=== PATIENT | female | born 1945 | race Caucasian/White ===

== ENCOUNTER 2017-06-10 13:00 | Day surgery (SDC) | payer MEDICARE ==
[~2017-06-10] VITALS: Ht 160 cm; Wt 81.3 kg
[~2017-06-10 13:00] MED LIST: Amlodipine Besyl5 MG PO; Aspir 8181 MG PO; ESTROGEN-METHY1 EACH PO; FISH OIL 1,2001 EAC1 PO; HORIZANT300 MG PO; HYDR-86 PO; Mirapex1 MG PO; Mobic15 MG PO; Multiple Vitam1 EAC1 PO; OMEP20ER PO; TIZANIDINE HCL2 MG PO; Venlafaxine HCl75 MG PO
== END 2017-06-10 16:46 | disposition home or self-care (01) ==
LOC: ORSCSDS 13:00
PROVIDERS: Podiatrist Foot & Ankle Surgery
PROC: 0LQN0ZZ Repair Right Lower Leg Tendon, Open Approach (ICD-10-PCS; principal; 2017-06-10 14:15)
PROC: 0LSN0ZZ Reposition Right Lower Leg Tendon, Open Approach (ICD-10-PCS; principal; 2017-06-10 14:15)
DX: M76.61 Achilles tendinitis, right leg (principal); E78.00 Pure hypercholesterolemia, unspecified; I10 Essential (primary) hypertension; G47.33 Obstructive sleep apnea (adult) (pediatric); F32.9 Major depressive disorder, single episode, unspecified; G25.81 Restless legs syndrome; Z79.899 Other long term (current) drug therapy
CPT/HCPCS: J0171; J0690; J2250; J3010

== ENCOUNTER → 2017-09-14 | Outpatient (CLI) | payer MEDICARE | END | disposition home or self-care (01) | LOC: EDSTATUS 08:56 → LAB SHORT 10:29 → PLD 10:29 | DX: D48.5 Neoplasm of uncertain behavior of skin (principal) | CPT/HCPCS: 88305 ==

== ENCOUNTER → 2018-06-28 | Outpatient (CLI) | payer MEDICARE | END | disposition home or self-care (01) | LOC: LAB SHORT 18:40 → LAB 18:40 | PROVIDERS: Nurse Practitioner Women's Health | DX: Z12.72 Encounter for screening for malignant neoplasm of vagina (principal) | CPT/HCPCS: 87624; G0123 ==

== ENCOUNTER 2018-07-14 06:52 | Day surgery (SDC) | payer MEDICARE ==
[~2018-07-14] VITALS: Ht 157.5 cm; Wt 71.9 kg
--- NOTE | 2018-07-14 07:48 | NUR ---
07/14/18 0748 Jose F Villagomez 1ST IV ATTEMPT IN LW UNSUCCESSFUL, PATIENT JERKED AWAY, [email or web address] 2ND IV ATTEMPT IN RH SUCCESSFUL, [id number]
--- NOTE | 2018-07-14 09:11 | NUR ---
07/14/18 0911 Trevin Laird FOR 0815. DR SARAVIA AND DR OHARA INFORMED OF PT'S POTASSIUM LEVEL OF 3.4 ON 07/05/18. NO NEW ORDERS GIVEN. OKAY TO PROCEDE WITH OPERATION.
--- NOTE | 2018-07-14 09:17 | NUR ---
07/14/18 0917 Anna Marie Correa PATIENT WAKES UP AND IS SHAKING HER HEAD AND MOVING AROUND VIGOUROUSLY I TALK TO HER AND GET HER TO UNDERSTAND WHERE SHE IS. ASK ABOUT PAIN AND NAUSEA--NO NAUSEA SHE DOES ADMIT TO PAIN 05/28 AND WHEN ASKED IF SHE WANTS MEDICATION FOR PAIN SHE REPLIES "LETS WAIT AND SEE"
== END 2018-07-14 10:18 | disposition home or self-care (01) ==
LOC: ORSCSDS 06:52
PROVIDERS: Podiatrist Foot & Ankle Surgery
PROC: 0LQW0ZZ Repair Left Foot Tendon, Open Approach (ICD-10-PCS; principal; 2018-07-14 08:15)
DX: M65.872 Other synovitis and tenosynovitis, left ankle and foot (principal); S86.312A Strain of muscle(s) and tendon(s) of peroneal muscle group at lower leg level, left leg, initial encounter; I10 Essential (primary) hypertension; K21.9 Gastro-esophageal reflux disease without esophagitis; Z79.899 Other long term (current) drug therapy
CPT/HCPCS: J0690; J1100; J2250; J2405; J2704; J3010; J7120

== ENCOUNTER 2019-02-02 10:48 | Day surgery (SDC) | payer MEDICARE ==
[~2019-02-02] VITALS: Ht 160 cm; Wt 77.4 kg
[~2019-02-02 10:48] MED LIST changes: +Accuneb0.63 MG/3 INH; +Buspirone HCl15 MG PO; +DOCU100 PO; +LOSARTAN POTAS100 MG PO; +Super Calcium600 MG PO; +TESTOSTERONE CREAM VAG; +VENL75ER PO; +Vivelle-Dot1 EAC3 TD
--- NOTE | 2019-02-02 12:37 | NUR ---
02/02/19 1237 Ibeth Davidson (Rosie PT UPDATED ON DELAY. PT RESTING COMFORTABLY WITH SPOUSE AT BEDSIDE, CALL LIGHT WITHIN REACH. PT DENIES NEEDS AT THIS TIME.
--- NOTE | 2019-02-02 15:02 | NUR ---
02/02/19 1502 Marilou Lee SHE STATES THE FENTANYL DID NOT RELIEVE HER PAIN, MED C TOTAL 100 MCG PER ORDER, MED C NORCO 5/325MG 2 PO FOR PAIN
== END 2019-02-02 16:00 | disposition home or self-care (01) ==
LOC: ORSCSDS 10:48
PROVIDERS: Podiatrist Foot & Ankle Surgery
PROC: 0LQW0ZZ Repair Left Foot Tendon, Open Approach (ICD-10-PCS; principal; 2019-02-02 12:15)
DX: S86.392A Other injury of muscle(s) and tendon(s) of peroneal muscle group at lower leg level, left leg, initial encounter (principal); I10 Essential (primary) hypertension; G47.33 Obstructive sleep apnea (adult) (pediatric); Z79.899 Other long term (current) drug therapy
CPT/HCPCS: A9270-GY; J0171; J0690; J2704; J3010; J7120

== ENCOUNTER → 2019-05-21 | Outpatient (CLI) | payer MEDICARE | END | disposition home or self-care (01) | LOC: LAB SHORT 11:17 → PLD 11:17 | DX: L81.4 Other melanin hyperpigmentation (principal) | CPT/HCPCS: 88305 ==

== ENCOUNTER → 2020-06-12 | Outpatient (CLI) | payer MEDICARE | END | disposition home or self-care (01) | LOC: LAB 18:33 → LAB SHORT 18:33 | DX: N39.0 Urinary tract infection, site not specified (principal) | CPT/HCPCS: 87077; 87086; 87186 ==

== ENCOUNTER → 2021-09-04 | Outpatient (CLI) | payer OTHER | END | disposition home or self-care (01) | LOC: LAB SHORT 15:00 → LAB 15:00 | DX: R82.998 Other abnormal findings in urine (principal) | CPT/HCPCS: 87077; 87086; 87186 ==

== ENCOUNTER → 2021-11-17 | Outpatient (CLI) | payer OTHER | END | disposition home or self-care (01) | LOC: LAB 12:33 → LAB SHORT 12:33 | DX: N39.0 Urinary tract infection, site not specified (principal) | CPT/HCPCS: 87077; 87086; 87186 ==

== ENCOUNTER → 2022-02-09 | Outpatient (CLI) | payer OTHER | END | disposition home or self-care (01) | LOC: LAB SHORT 15:14 → LAB 15:14 | DX: R30.0 Dysuria (principal) | CPT/HCPCS: 87077; 87086; 87186 ==

== ENCOUNTER 2023-04-19 12:49 | Emergency (ER) | payer OTHER ==
[~2023-04-19] VITALS: Ht 160 cm; Wt 71.2 kg
[2023-04-19] MEDS ORDERED: NS 1,000 ML IV SCH (14:35)
[2023-04-19] MEDS ORDERED: Ondansetron HCl 2 MG / ML 2ML Vial IV PRN (14:35)
[2023-04-19 15:14] LABS: Source, Urine Straight Cath
[2023-04-19 15:18] LABS: BASOPHILS ABSOLUTE AUTO 0.03 K/mm3 (0.00-0.23); BASOPHILS PERCENT AUTO 0 % (0-2); EOSINOPHILS ABSOLUTE AUTO 0.15 K/mm3 (0.00-0.68); EOSINOPHILS PERCENT AUTO 2 % (0-6); Hematocrit 44.3 % (33.0-51.0); Hemoglobin 14.7 g/dL (11.5-16.0); IMMATURE GRAN ABSOLUTE AUTO 0.03 K/mm3 (0.00-0.10); IMMATURE GRAN PERCENT AUTO 0 % (0-1); LYMPHOCYTES ABSOLUTE AUTO 1.26 K/mm3 (0.84-5.20); LYMPHOCYTES PERCENT AUTO 15 % (21-46); MONOCYTES ABSOLUTE AUTO 0.51 K/mm3 (0.16-1.47); MONOCYTES PERCENT AUTO 6 % (4-13); Mean Corpuscular HGB 31.3 pg (26.0-34.0); Mean Corpuscular HGB Conc 33.2 g/dL (31.5-36.5); Mean Corpuscular Volume 95 fL (80-100); NEUTROPHILS ABSOLUTE AUTO 6.54 K/mm3 (1.96-9.15); NEUTROPHILS PERCENT AUTO 77 % (41-73); Platelet Count 238 K/mm3 (150-400); RDW Standard Deviation 41.3 fL (35.1-46.3); Red Blood Cell Count 4.69 M/mm3 (3.80-5.20); White Blood Cell Count 8.52 K/mm3 (4.00-11.30)
[2023-04-19 15:19] LABS: Appearance, Urine Clear (Clear); Bilirubin, Urine Neg (Neg); Blood, Urine Neg (Neg); Glucose Qualitative, Urine Neg (Neg); Ketones, Urine Neg (Neg); Leukocyte Esterase, Urine Neg (Neg); Nitrite, Urine Neg (Neg); Protein, Urine Neg (Neg); Urobilinogen, Urine NORM (Normal)
[2023-04-19 15:28] LABS: Magnesium, Blood 2.2 mg/dL (1.6-2.4)
[2023-04-19] MEDS ORDERED: DiphenhydrAMINE HCl 50 MG/ML 1ML Vial IV ONE (15:30)
[2023-04-19] MEDS ORDERED: Metoclopramide HCl 5MG / ML 2ML Vial IV ONE (15:30)
[2023-04-19 15:31] LABS: Albumin, Blood 4.2 g/dL (3.4-5.0); Albumin/Globulin Ratio 0.9 (0.8-1.8); Bilirubin, Total 0.4 mg/dL (0.1-1.0); Bun/Creatinine Ratio 30.2 (12.0-20.0); Creatinine, Blood 0.6 mg/dL (0.40-1.00); Globulin, Blood 4.7 g/dL (2.2-4.0); Potassium, Blood 4.4 mmol/L (3.5-5.5); Thyroid Stimulating Hormone 2.07 uIU/mL (0.360-4.800); Total Protein, Blood 8.9 g/dL (6.4-8.2)
[2023-04-19 15:51] LABS: Color, Urine Pale Yellow (P-Yellow)
[2023-04-19 16:06] LABS: U Amphetamine Screen Not Detected; U Barbituate Screen Not Detected; U Benzodiazapine Screen Not Detected; U Buprenorphine Screen Not Detected; U Cannabinoids Screen Not Detected; U Cocaine Screen Not Detected; U Methadone Screen Not Detected; U Methamphetamine Screen Not Detected; U Opiates Screen Not Detected; U Oxycodone Screen Not Detected; U Phencyclidine Screen Not Detected
[2023-04-19 16:11] LABS: Influenza A, PCR NEGATIVE (NEGATIVE); Influenza B, PCR NEGATIVE (NEGATIVE); Resp Syncytial Virus, PCR NEGATIVE (NEGATIVE); SARS-Cov-2 (COVID-19) PCR, MMC NEGATIVE (NEGATIVE)
[2023-04-19] MEDS ORDERED: MECL12.5 PO (16:14)
[2023-04-19] MEDS ORDERED: PROM25 PO (16:14)
[2023-04-19 16:33] VITALS: BP 127/88
== END 2023-04-19 16:33 | disposition home or self-care (01) ==
LOC: ER 12:49
PROVIDERS: Emergency Medicine
DX: R42 Dizziness and giddiness (principal); R51.9 Headache, unspecified; R94.31 Abnormal electrocardiogram [ECG] [EKG]; M54.50 Low back pain, unspecified; G89.29 Other chronic pain; Z79.899 Other long term (current) drug therapy; Z88.5 Allergy status to narcotic agent; Z88.8 Allergy status to other drugs, medicaments and biological substances
CPT/HCPCS: 0241U; 70450; 71045; 72125; 80053; 81003; 83735; 84443; 85025; 93005; 93010; 96374; 96375; 99285-25; J1200; J2405; J2765; J7030